=== PATIENT | female | born 1935 | race Caucasian/White ===

== ENCOUNTER → 2021-02-20 | Outpatient (CLI) | payer MEDICARE, OTHER ==
[~2021-02-20] MED LIST: METO50TA7 PO
[2021-02-20 14:59] LABS: HEMATOCRIT 49 % (35-52); HEMOGLOBIN 15.8 g/dL (11.5-16.0); MEAN CORPUSCULAR HEMOGLOBIN 29 pg (25-34); MEAN CORPUSCULAR HGB CONC 32 g/dL (32-36); MEAN CORPUSCULAR VOLUME 88 fL (80-99); MEAN PLATELET VOLUME 9.3 fL (9.0-12.2); PLATELET COUNT 230 10^3/uL (130-400); WHITE BLOOD COUNT 7.7 10^3/uL (4.3-11.0)
[2021-02-20 15:20] LABS: ALBUMIN 4.2 GM/DL (3.2-4.5); BILIRUBIN,TOTAL 0.4 MG/DL (0.1-1.0); CALCIUM 10.3 MG/DL (8.5-10.1); CREATININE SERUM 0.86 MG/DL (0.60-1.30); POTASSIUM 3.7 MMOL/L (3.6-5.0); TOTAL PROTEIN 7.1 GM/DL (6.4-8.2)
--- NOTE | 2021-02-20 15:38 | Diagnostic Imaging Report ---
Left humerus at 3:16. Indication: Arm pain 2 views are obtained. There is no fracture, dislocation or acute bony abnormality evident. The severe degenerative changes involving the shoulder joint seen on the left shoulder exam performed in conjunction with the study are again evident. Conversely the elbow joint seems fairly well maintained. The soft tissues are unremarkable. Impression: There is no acute bony abnormality of the humerus. Dictated by: Dictated on workstation # [id number]
--- NOTE | 2021-02-20 15:39 | Diagnostic Imaging Report ---
EXAMINATION: Left shoulder at 3:17 p.m. INDICATION: Arm pain. Three views were obtained. There are no prior left shoulder examinations available for comparison. FINDINGS: There is no fracture, dislocation, or acute bony abnormality evident. 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 Specifically, there is marked narrowing of the glenohumeral joint with sclerosis of the opposing surfaces of the glenoid and the humeral head. In addition, the space between the undersurface of the acromion and the humeral head usually seen has been nearly completely obliterated. This does suggest that there has been an injury to the rotator cuff. The soft tissues are unremarkable. IMPRESSION: 1. There is no evidence for an acute bony abnormality. 2. 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 Dictated by: Dictated on workstation # [id number]
== END ==
LOC: RAD 14:32
PROVIDERS: ATTEND Family Medicine
DX: M19.012 Primary osteoarthritis, left shoulder (principal); R53.83 Other fatigue
CPT/HCPCS: 36415; 73030; 73060; 80053; 85027

== ENCOUNTER → 2021-05-05 | Outpatient (CLI) | payer MEDICARE ==
--- NOTE | 2021-05-05 11:59 | Diagnostic Imaging Report ---
INDICATION: Left knee pain and lump behind the left knee. TIME OF EXAM: 11:51 a.m. FINDINGS: Three views of the left knee were obtained. There are fairly significant patellofemoral joint degenerative changes with joint space narrowing and marginal spurring. There are milder medial compartmental degenerative changes. Articular surfaces are smooth. No fracture, dislocation, or effusion is seen. IMPRESSION: Chronic changes. No acute bony abnormality is detected. Dictated by: Dictated on workstation # [id number]
--- NOTE | 2021-05-05 11:59 | Diagnostic Imaging Report ---
PROCEDURE: US left lower extremity venous. TECHNIQUE: Multiple real-time grayscale images were obtained over the left lower extremity in various projections. Additional duplex Doppler and color Doppler images were also obtained. INDICATION: Left leg pain as well as lump behind the left knee. FINDINGS: There is no evidence of left lower extremity DVT. Left lower extremity deep venous system shows normal compressibility with normal response to augmentation and Valsalva. 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 No other masses are seen. IMPRESSION: 1. No evidence of left lower extremity DVT. 2. 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 Dictated by: Dictated on workstation # [id number]
== END ==
LOC: RAD 11:30
PROVIDERS: ATTEND Family Medicine
DX: M79.605 Pain in left leg (principal); R22.42 Localized swelling, mass and lump, left lower limb
CPT/HCPCS: 73562